=== PATIENT | male | born 1970 | race Caucasian/White ===

== ENCOUNTER 2020-11-28 11:05 | Emergency (ER) | payer SELFPAY ==
[~2020-11-28] VITALS: Ht 170.2 cm; Wt 74.8 kg
[2020-11-28] MEDS ORDERED: OLANZAPINE 10 MG VIAL IM ONE ×2 (11:20→11:30)
[2020-11-28] MEDS ORDERED: LORAZEPAM INJ 2 MG/ML VIAL ONE ×2 (11:21→12:51)
--- NOTE | 2020-11-28 11:27 | NUR ---
Note undone in EDM - 11/28/20 at 1136 by CONSUELO ROSENDA Velez/ [facility] FROM [facility]RE[facility] ON HAND [employer]FF[employer], TO ER BED 13. AAOX4. NOT IN RESP DISTRESS. HYPER VERBAL. BROUGHT IN FOR SUICIDAL IDEATION PER DENNIS. ACCORDING TO [facility] OFFICERS, PT VERBALIZED TO THEM THAT HE WANT TO KILL HIMSELF. UPON ASSESSING, PT IS AGITATED BUT EASILY REDIRECTABLE. ACCORDING TO PT, HE IS PISSED. HE DENIED THAT HE IS SUICIDAL UPON ASSESSING BUT DID ADMIT THAT HE SAID IT EARLIER. WAS AT THE BEDSIDE FOR EVAL. ORDERS RECEIVED, NOTED AND CARRIED OUT. MEDICATED ORDERED. PROVIDED WITH WATER.
--- NOTE | 2020-11-28 11:27 | NUR ---
ROSENDA Velez/ DENNIS FROM THE STREET ON HAND CUFFS, TO ER BED 13. AAOX4. NOT IN RESP DISTRESS. HYPER VERBAL. BROUGHT IN FOR SUICIDAL IDEATION PER DENNIS. ACCORDING TO [facility]NIS OFFICERS, PT VERBALIZED TO THEM THAT HE WANT TO KILL HIMSELF. UPON ASSESSING, PT IS AGITATED BUT EASILY REDIRECTABLE. ACCORDING TO PT, HE IS PISSED. HE DENIED THAT HE IS SUICIDAL UPON ASSESSING BUT DID ADMIT THAT HE SAID IT EARLIER. PT ADMITTED TO METH AND CANNABIS USE. WAS AT THE BEDSIDE FOR EVAL. ORDERS RECEIVED, NOTED AND CARRIED OUT. MEDICATED ORDERED. PROVIDED WITH WATER.
[2020-11-28] MEDS ORDERED: LORAZEPAM INJ 2 MG/ML VIAL IM ONE ×2 (11:30→13:00)
[2020-11-28 11:47] LABS: BASOPHILS # (AUTO) 0.1 K/uL (0.0-0.2); BASOPHILS % (AUTO) 1.2 % (0.0-2.0); EOSINOPHILS % (AUTO) 1.2 % (0.0-6.0); HEMATOCRIT 39 % (39-51); HEMOGLOBIN 12.7 g/dL (13.5-17.5); LYMPHOCYTES # (AUTO) 1.4 K/uL (0.8-4.8); LYMPHOCYTES % (AUTO) 23.7 % (20.0-44.0); MEAN CORPUSCULAR HGB CONC 33 g/dl (31.0-36.0); MEAN CORPUSCULAR VOLUME 85 fL (80-96); MONOCYTES # (AUTO) 0.5 K/uL (0.1-1.30); MONOCYTES % (AUTO) 8.5 % (2.0-12.0); NEUTROPHILS # (AUTO) 3.8 K/uL (1.8-8.9); NEUTROPHILS % (AUTO) 65.4 % (43.0-81.0); PLATELET COUNT (AUTO) 281 K/uL (150-450); RED BLOOD CELL COUNT(AUTO) 4.54 MIL/uL (4.5-6.0); WHITE BLOOD COUNT (AUTO) 5.8 K/uL (4.3-11.0)
--- NOTE | 2020-11-28 12:00 | NUR ---
RECEIVED [id number] HOLD FROM [facility] OFFICER LEMUS DANGER TO SELF AND TO OTHERS. WRIITEN AT 1100.
[2020-11-28 12:02] LABS: CALCIUM, SERUM 8.7 mg/dL (8.5-10.1); CARBON DIOXIDE 26 mmol/L (21-32); CHLORIDE 107 mmol/L (98-107); CREATININE 0.8 mg/dL (0.6-1.3); GLUCOSE 101 mg/dL (74-106); POTASSIUM 3.8 mmol/L (3.5-5.1); SODIUM SERUM 142 mmol/L (136-145); UREA NITROGEN, BLOOD 19 mg/dL (7-18)
[2020-11-28 12:08] LABS: ALANINE AMINOTRANSFERASE 37 U/L (12-78); ALBUMIN 3.3 g/dL (3.4-5.0); ALCOHOL, BLOOD < 3 mg/dL (0-0); ALKALINE PHOSPHATASE 67 U/L (46-116); ASPARTATE AMINOTRANSFERASE 24 U/L (15-37); BILIRUBIN,DIRECT 0.1 mg/dL (0.0-0.2); BILIRUBIN,TOTAL 0.2 mg/dL (0.2-1.0); TOTAL PROTEIN, SERUM 6.8 g/dL (6.4-8.2)
[2020-11-28 12:11] LABS: ACETAMINOPHEN < 10 ug/ml (10-30)
[2020-11-28] MEDS ORDERED: HALOPERIDOL LACTATE INJ 5 MG/ML VIAL ONE (12:51)
--- NOTE | 2020-11-28 12:55 | NUR ---
PT PROVIDES URINE SAMPLE. COLLECTED. SENT TO LAB.
[2020-11-28] MEDS ORDERED: HALOPERIDOL LACTATE INJ 5 MG/ML VIAL IM ONE (13:00)
[2020-11-28 13:02] LABS: BILIRUBIN,URINE Negative (NEGATIVE); COLOR,URINE YELLOW (YELLOW); LEUKOCYTE ESTERASE ,URINE Negative (NEGATIVE); NITRITE, URINE Negative (NEGATIVE); PROTEIN,URINE Negative (NEGATIVE); UGLUCOSE Negative (NEGATIVE); UROBILINOGEN,URINE 0.2 EU/dL (0.2)
--- NOTE | 2020-11-28 13:02 | NUR ---
ATIVAN AND HALDOL WAS NOT GIVEN D/T PT JUST WANTED TO URINATE THAT IS WHY HE IS YELLING AND SCREAMING.
--- NOTE | 2020-11-28 14:30 | NUR ---
Design Verification Engineer note: director of physiotherapy services requested for homelessness. SW was unable to interview the patient or assess the pt's needs for community resources as he was unarousable. SS will remain available as needed.
--- NOTE | 2020-11-28 14:39 | NUR ---
CALLED [employer] FOR EVAL. ETA 1 HOUR.
--- NOTE | 2020-11-28 22:30 | NUR ---
PT STARTED YELLING AND BECAUSE HE WANT TO URINATE UPON ASSISTING PT WITH A URINAL PT KICKED NURSE.
--- NOTE | 2020-11-28 23:14 | NUR ---
PAGED DINING ROOM HOSTESS, NO ANSWER AND MESSAGE LEFT.
--- NOTE | 2020-11-29 01:48 | NUR ---
TRANG MONROE RN [employer] AT BEDSIDE TO NANCY VILLANUEVA.
--- NOTE | 2020-11-29 02:31 | NUR ---
PT REFUSED TO LEAVE ED. [facility] CALLED.
--- NOTE | 2020-11-29 02:42 | NUR ---
[facility]IS CALLED, PT REFUSING TO LEAVE.
--- NOTE | 2020-11-29 03:02 | NUR ---
[employer] AT BEDSIDE.
--- NOTE | 2020-11-29 03:17 | NUR ---
DENNIS TOOK PT IN CUSTODY.
[2020-11-29 03:18] VITALS: BP 131/75
== END 2020-11-29 03:18 ==
LOC: ER 11:09
DX: F29 Unspecified psychosis not due to a substance or known physiological condition (principal); F17.200 Nicotine dependence, unspecified, uncomplicated; Z60.2 Problems related to living alone
CPT/HCPCS: 36415; 80048; 80076; 80143; 80307; 80320; 81003; 85025; 96372 ×2; 99291; J1630; J2060 ×2; J3490; G0480